=== PATIENT | female | born 1945 | race Two or more races ===

== ENCOUNTER 2020-09-23 18:09 | Emergency (ER) | payer OTHER ==
[~2020-09-23] VITALS: Ht 157.5 cm; Wt 61.2 kg
[~2020-09-23 18:09] MED LIST: CLONAZEPAM0.5 MG; COZAAR25 MG; LIPITOR20 MG; PROZAC10 MG; SYNTHROID50 MCG
[2020-09-23] MEDS ORDERED: COZAAR100 MG PO (18:49)
[2020-09-23] MEDS ORDERED: SYNTHROID75 MCG PO (18:49)
[2020-09-23] MEDS ORDERED: ATORVASTATIN CA20 MG PO (18:49)
== END 2020-09-24 00:53 | disposition home or self-care (01) ==
LOC: ER 18:09
DX: R53.81 Other malaise (principal); R63.0 Anorexia; F41.0 Panic disorder [episodic paroxysmal anxiety]; Z03.818 Encounter for observation for suspected exposure to other biological agents ruled out